=== PATIENT | female | born 1950 | race Caucasian/White ===

== ENCOUNTER 2016-08-02 09:39 | Outpatient (CLI) | END 2016-08-02 09:40 | LOC: AMBL 09:39 | PROVIDERS: ATTEND Family Medicine | DX: T42.4X1A Poisoning by benzodiazepines, accidental (unintentional), initial encounter (principal) ==

== ENCOUNTER 2020-01-21 16:17 | Inpatient (IN) ==
[2020-01-21 17:44] LABS: BASOPHILS % (AUTO) 0.3 % (0.0-3.0); EOSINOPHILS # (AUTO) 0.1 K/ul (0.0-0.7); EOSINOPHILS % (AUTO) 1.7 % (0.0-7.0); HEMATOCRIT 34.7 % (37.0-47.0); HEMOGLOBIN 11.5 g/dl (12.0-16.0); IMMATURE GRANULOCYTE % (AUTO) 0.3 % (0.0-5.0); LYMPHOCYTES # (AUTO) 1.5 K/uL (0.60-3.4); LYMPHOCYTES % (AUTO) 18.9 (10.0-50.0); MEAN CORPUSCULAR HEMOGLOBIN 29.2 pg (27.0-31.0); MEAN CORPUSCULAR HGB CONC 33.1 (31.8-35.4); MEAN CORPUSCULAR VOLUME 88.1 fl (81.0-99.0); MONOCYTES # (AUTO) 0.3 K/uL (0.4-2.0); MONOCYTES % (AUTO) 3.8 (0-10); NEUTROPHILS # (AUTO) 5.8 K/ul (2.0-6.9); PLATELET COUNT 161 10^3/uL (140-440); RDW COEFFICIENT OF VARIATION 12.6 % (11.6-14.8); RED BLOOD COUNT 3.94 10^6/ul (4.20-5.40); WHITE BLOOD COUNT 7.66 K/ul (4.6-10.2)
[2020-01-21 17:56] LABS: ALANINE AMINOTRANSFERASE 11.7 U/L (0-35); ALBUMIN 3.92 g/dL (3.5-5.0); ALKALINE PHOSPHATASE 59.1 U/L (53-141); BILIRUBIN,TOTAL 0.97 mg/dL (0.2-1.3); BLOOD UREA NITROGEN 12.7 mg/dL (7-17); CALCIUM 9.2 mg/dL (8.4-10.2); CARBON DIOXIDE 26.7 mmol/L (22-30.0); CHLORIDE 104.2 mmol/L (98-107); CREATINE KINASE 22.5 U/L (30-135); CREATININE 0.7 mg/dL (0.60-1.30); GLUCOSE 123.2 mg/dL (74-106); POTASSIUM 3.92 mmol/L (3.5-5.1); SODIUM 137.7 mmol/L (134.5-145); TOTAL PROTEIN 6.61 g/dL (6.3-8.2)
[2020-01-21 17:57] LABS: LIPASE 124.6 U/L (23-300); MAGNESIUM 1.9 mg/dL (1.6-2.3)
--- NOTE | 2020-01-21 18:05 | CT ---
EXAM: CT Head HISTORY: Severe headache, elevated blood pressure COMPARISON: None TECHNIQUE: CT head performed without contrast FINDINGS: There is no mass effect, midline shift, or intracranial hemmorhage. Cortez white differenti ation is preserved. There is no extra-axial collection. Mild periventricular subcortical white veronica er hypodensities. The ventricles and sulci are unremarkable. The basal cisterns are patent. There is no depressed calvarial fracture. The mastoid air cells are clear. The visualized paranasal sinuses are clear. IMPRESSION: 1. No acute intracranial abnormality. 2. Mild chronic small vessel ischemic changes.
--- NOTE | 2020-01-21 18:08 | ED.PDOC ---
General ED Provider: Dr. JAYESH SANTOS Chief Complaint: Hypertension Stated Complaint: Severe Headache-associated with uncontrolled Hypertension Time Seen by Physician: 16:45 Mode of Arrival: Walk-In Information Source: Patient Exam Limitations: No limitations Primary Care Provider: ZORAIDA WASHBURN Nursing and Triage Documentation Reviewed and Agree: Yes Does patient meet sepsis criteria?: No System Inflammatory Response Syndrome: Not Applicable Sepsis Protocol: For patient's 13 years and over: Temp is 96.8 and below OR 101 and greater Pulse >90 BPM Resp >20/minute Acutely Altered Mental Status Are patient's symptoms suggestive of a new infection, such as: -Pneumonia -Skin, Soft Tissue -Endocarditis -UTI -Bone, Joint Infection -Implantable Device -Acute Abdominal Infection -Wound Infection -Meningitis -Blood Stream Catheter Infection -Unknown Neurological Complaint Exam Headache Complaint/Exam Onset: Gradual Duration: 12 hr Symptoms Are: Still present Timing: Intermittent Episodes Lasting: Hours Worst Headache Ever: No Initial Severity: Moderate Current Severity: Mild Location: Frontal, Temporal and Occipital Character: Reports Pressure Aggravating: Reports Exertion and Position change Alleviating: Reports None Associated Signs and Symptoms: Reports Neck pain and Neck stiffness; Denies Dizziness, Seizure, Nausea, Vomiting, Sinus pressure, Fever, Decreased LOC and Visual changes Related Surgical History: Reports None SAH Risk Factors: Reports None Meningitis Risk Factors: Reports None SDH Risk Factors: Reports None Temporal Arteritis Risk Factors: Reports None Normal Head CT Within Last 12 Months: No Fundoscopic Exam: Present Normal Findings Papilledema Present: No Temporal Artery Tenderness: Present None Sinus Tenderness: Present None TMJ Tenderness: Present None Pain on Passive Flexion-Positive Kernig's: No ROM Limited In: No Limitiations Focal Weakness: Present None Focal Sensory Loss: Present None Gait: Normal Nystagmus Present: No Gag Reflex Present: Yes [id number]: Normal Findings Babinski Sign: Negative Right and Negative Left Heel to Toe Normal: Yes Differential Diagnoses: Tension Headache Review of Systems Review Of Systems Constitutional: Reports No symptoms Eyes: Reports No symptoms Ears, Nose, Mouth, Throat: Reports No symptoms Respiratory: Reports No symptoms Cardiac: Reports No symptoms GI: Reports No symptoms : Reports No symptoms Musculoskeletal: Reports No symptoms, Joint pain, Muscle pain, Muscle stiffness and Neck pain Skin: Reports No symptoms Neurological: Reports No symptoms and Anxiety Endocrine: Reports No symptoms Hematologic/Lymphatic: Reports No symptoms All Other Systems: Reviewed and Negative Physical Exam Physical Exam Appearance: Reports Well-appearing, No pain distress and Well-nourished Ill-appearing: Mild Pain Distress: Mild Eyes: Reports SALLY, EOMI and Conjunctiva clear ENT: Reports Ears normal, Nose normal and Oropharynx normal Neck: Nonsupple (Tight paravertebral mm spasm) Respiratory: Reports Airway patent, Breath sounds clear, Breath sounds equal and Respirations nonlabored Cardiovascular: Reports RRR, Pulses normal, No rub and No murmur GI/: Reports Soft, Nontender, No masses, Bowel sounds normal and No Organomegaly Musculoskeletal: Reports Normal strength, ROM intact, No edema and No calf tenderness Skin: Reports Warm, Dry and Normal color Neurological: Reports Sensation intact, Motor intact, Reflexes intact, Cranial nerves intact, Alert and Oriented Psychiatric: Reports Affect appropriate and Mood appropriate NIH Stroke Scale 1a. Level of Consciousness: 0=Alert and keenly responsive 1b. Level of Consciousness Questions: 0=Answers correctly to two questions 1c. Level of Consciousness Commands: 0=Performs two tasks correctly 2. Best Gaze: 0=Normal 3. Visual: 0=No visual loss 4. Facial Palsy: 0=Normal 5a. Motor Left Arm: 0=No drift,arm holds 90 degrees for 10 sec., leg 30 degrees for 5 sec. 5b. Motor Right Arm: 0=No drift,arm holds 90 degrees for 10 sec., leg 30 degrees for 5 sec. 6a. Motor Left Le=No drift,arm holds 90 degrees for 10 sec., leg 30 degrees for 5 sec. 6b. Motor Right Le=No drift,arm holds 90 degrees for 10 sec., leg 30 degrees for 5 sec. 7. Limb Ataxia: 0=Absent 8. Sensory: 0=Normal 9. Best Language: 0=No aphasia 10. Dysarthria: 0=Normal 11. Extincion and Inattention: 0=Normal Stroke Scale Total: 0 Physician Notification Case Discussed Physician Notified: dr washburn-admit for eval and treatment Time of Notification: 18:45 Critical Care Note Critical Care Note Total Time (mins): 60 Course Course Hematology/Chemistry: 01/21/20 17:40 01/21/20 17:40 Orders, Labs, Meds: Lab Review 01/21/20 01/21/20 01/21/20 17:40 17:40 17:40 WBC 7.66 RBC 3.94 L Hgb 11.5 L Hct 34.7 L MCV 88.1 MCH 29.2 MCHC 33.1 RDW Coeff of Wendy 12.6 Plt Count 161 Immature Gran % (Auto) 0.3 Neut % (Auto) 75.0 Lymph % (Auto) 18.9 [place] % (Auto) 3.8 Eos % (Auto) 1.7 Baso % (Auto) 0.3 Neut # (Auto) 5.8 Lymph # (Auto) 1.5 [place] # (Auto) 0.3 L Eos # (Auto) 0.1 Baso # (Auto) 0.0 Immature Gran # (Auto) 0.0 Sodium 137.7 Potassium 3.92 Chloride 104.2 Carbon Dioxide 26.7 Anion Gap 10.72 BUN 12.7 Creatinine 0.70 Estimated GFR (MDRD) 83.00 BUN/Creatinine Ratio 18.14 Glucose 123.2 H Uric Acid Calcium 9.20 Magnesium 1.90 Total Bilirubin 0.97 AST 29.0 ALT 11.7 Alkaline Phosphatase 59.1 Total Creatine Kinase 22.5 L Total Protein 6.61 Albumin 3.92 Globulin 2.69 Albumin/Globulin Ratio 1.45 Lipase 124.6 01/21/20 17:40 WBC RBC Hgb Hct MCV MCH MCHC RDW Coeff of Wendy Plt Count Immature Gran % (Auto) Neut % (Auto) Lymph % (Auto) [place] % (Auto) Eos % (Auto) Baso % (Auto) Neut # (Auto) Lymph # (Auto) [place] # (Auto) Eos # (Auto) Baso # (Auto) Immature Gran # (Auto) Sodium Potassium Chloride Carbon Dioxide Anion Gap BUN Creatinine Estimated GFR (MDRD) BUN/Creatinine Ratio Glucose Uric Acid 4.80 Calcium Magnesium Total Bilirubin AST ALT Alkaline Phosphatase Total Creatine Kinase Total Protein Albumin Globulin Albumin/Globulin Ratio Lipase Orders Category Date Time Status EKG-(ED ONLY) Stat CARDIO 01/21/20 17:28 Completed CBC W/ AUTO DIFF Stat LAB 01/21/20 17:40 Completed CMP [COMPREHENSIVE METABOLIC PANEL] Stat LAB 01/21/20 17:40 Completed CPK [CREATINE KINASE] Stat LAB 01/21/20 17:40 Completed ESR Stat LAB 01/21/20 17:40 Received LIPASE Stat LAB 01/21/20 17:40 Completed MAGNESIUM Stat LAB 01/21/20 17:40 Completed UA [URINALYSIS C & S IF INDICATED] Stat LAB 01/21/20 19:33 Ordered URIC ACID Stat LAB 01/21/20 17:40 Completed Hydralazine HCl [Apresoline] MEDS 01/21/20 18:56 Discontinued 25 mg PO ONCE STA Ketorolac Tromethamine [Toradol] MEDS 01/21/20 18:57 Discontinued 30 mg IM ONCE STA Orphenadrine Citrate [Norflex] MEDS 01/21/20 18:56 Discontinued 100 mg PO ONCE STA CHEST, 1V AP ONLY Stat RADS 01/21/20 17:[address] HEAD W/O CONTRAST Stat RADS 01/21/20 17:33 Completed Medications Discontinued Medications Generic Name Dose Route Start Last Admin Trade Name Freq PRN Reason Stop Dose Admin Hydralazine HCl 25 mg 01/21/20 18:56 01/21/20 19:21 Apresoline PO 01/21/20 18:57 25 mg ONCE STA Administration Ketorolac Tromethamine 30 mg 01/21/20 18:57 01/21/20 19:21 Toradol IM 01/21/20 18:58 30 mg ONCE STA Administration Orphenadrine Citrate 100 mg 01/21/20 18:56 01/21/20 19:21 Norflex PO 01/21/20 18:57 100 mg ONCE STA Administration Vital Signs: Temp Pulse Resp BP Pulse Ox 01/21/20 16:18 98.9 F 80 20 186/86 H 94 L Discharge Plan Discharge Prescriptions: No Action metformin 500 mg Tablet 500 mg PO BID RF: 0 atorvastatin 10 mg Tablet 10 mg PO BEDTIME RF: 0 aspirin [Aspir-81] 81 mg Tablet,Delayed Release (Dr/Ec) 81 mg PO DAILY RF: 0 verapamil 120 mg Tablet 120 mg PO BID RF: 0 Activity Restrictions/Additional Instructions: Explained to Dr Washburn patients symptoms and recommended hospitalization Explained to patient who agrees with admission. ED Provider: JAYESH SANTOS
--- NOTE | 2020-01-21 18:36 | DI ---
EXAM: Chest one view HISTORY: Hypertension with severe headaches and weakness COMPARISON: 07/17/2019 TECHNIQUE: Single view of the chest was performed FINDINGS: Normal heart size. Normal mediastinal contour. The lungs are clear. No pleural effusion or pneumothorax. No acute osseous abnormality. Round/ovoid calcific density in the left upper quadra nt may be similar to prior exam. IMPRESSION: 1. No acute cardiopulmonary process. 2. Nonspecific round/ovoid calcific density in the left upper quadrant, which may represent calcifie d splenic cyst among other etiologies. Routine outpatient CT could further evaluate.
[2020-01-21] MEDS ORDERED: APRESOLINE PO STA (18:56)
[2020-01-21] MEDS ORDERED: NORFLEX PO STA (18:56)
[2020-01-21] MEDS ORDERED: TORADOL IM STA (18:57)
[2020-01-21 19:42] LABS: ERYTHROCYTE SEDIMENTATION RATE 10 mm/hr (0-20)
[2020-01-21 19:44] LABS: BILIRUBIN,URINE Negative (NEGATIVE); CLARITY,URINE Clear (CLEAR); COLOR,URINE Yellow (YELLOW); GLUCOSE, URINE (UA) Negative (NEGATIVE); KETONES,URINE 2+ (NEGATIVE); LEUKOCYTE ESTERASE ,URINE Negative (NEGATIVE); NITRITE,URINE Negative (NEGATIVE); PROTEIN,URINE Negative (NEGATIVE); URINE, BLOOD Negative (NEGATIVE); UROBILINOGEN,URINE 0.2 (0.2)
[2020-01-21 21:10] VITALS: BMI 23.8
[2020-01-22 05:29] LABS: BASOPHILS # (AUTO) 0.1 K/uL (0-0.2); BASOPHILS % (AUTO) 0.7 % (0.0-3.0); EOSINOPHILS # (AUTO) 0.2 K/ul (0.0-0.7); EOSINOPHILS % (AUTO) 3.1 % (0.0-7.0); HEMATOCRIT 35.6 % (37.0-47.0); HEMOGLOBIN 11.7 g/dl (12.0-16.0); IMMATURE GRANULOCYTE % (AUTO) 0.3 % (0.0-5.0); LYMPHOCYTES # (AUTO) 2.2 K/uL (0.60-3.4); LYMPHOCYTES % (AUTO) 28.6 (10.0-50.0); MEAN CORPUSCULAR HEMOGLOBIN 28.7 pg (27.0-31.0); MEAN CORPUSCULAR HGB CONC 32.9 (31.8-35.4); MEAN CORPUSCULAR VOLUME 87.3 fl (81.0-99.0); MONOCYTES # (AUTO) 0.4 K/uL (0.4-2.0); MONOCYTES % (AUTO) 5.4 (0-10); NEUTROPHILS # (AUTO) 4.7 K/ul (2.0-6.9); NEUTROPHILS % (AUTO) 61.9 % (42.2-75.2); PLATELET COUNT 202 10^3/uL (140-440); RDW COEFFICIENT OF VARIATION 12.7 % (11.6-14.8); RED BLOOD COUNT 4.08 10^6/ul (4.20-5.40); WHITE BLOOD COUNT 7.65 K/ul (4.6-10.2)
[2020-01-22 05:42] LABS: ALANINE AMINOTRANSFERASE 11.5 U/L (0-35); ALBUMIN 3.86 g/dL (3.5-5.0); ALKALINE PHOSPHATASE 58.7 U/L (53-141); ASPARTATE AMINO TRANSFERASE 21.3 U/L (14-36); BILIRUBIN,TOTAL 1.11 mg/dL (0.2-1.3); BLOOD UREA NITROGEN 15.1 mg/dL (7-17); CALCIUM 9.45 mg/dL (8.4-10.2); CHLORIDE 103.8 mmol/L (98-107); CREATININE 0.76 mg/dL (0.60-1.30); GLUCOSE 104.5 mg/dL (74-106); POTASSIUM 3.77 mmol/L (3.5-5.1); SODIUM 139.5 mmol/L (134.5-145); TOTAL PROTEIN 6.48 g/dL (6.3-8.2)
--- NOTE | 2020-01-22 08:26 | PCM.PROG ---
Attending Provider: ATTENDING PROVIDER: Dr. ZORAIDA SOTELO This patient is seen with Saritha Tellez, Nurse Practitioner. DATE OF SERVICE: 01/22/20 SUBJECTIVE: This 69 year old /WHITE F was hospitalized 01/21/20. The patient is resting comfortably in the bed. She has had no further episodes of headache or vomiting. Her blood pressure his morning has been improved. CT of the head results were reviewed. REVIEW OF SYSTEMS: CONSTITUTIONAL: No night sweats. No fatigue, malaise, lethargy. No fever or chills. HEENT: Eyes: No visual changes. No eye pain. No eye discharge. ENT: No runny nose. No epistaxis. No sinus pain. No odynophagia. No congestion. RESPIRATORY: No cough, no congestion. No hemoptysis. No shortness of breath. CARDIOVASCULAR: No angina symptoms. No CHF symptoms. No atypical chest pain for CAD. No palpitations. No orthopnea.. GASTROINTESTINAL: No abdominal pain. vomiting, resolved. No diarrhea or constipation. No hematemesis. No hematochezia. GENITOURINARY: No urgency. No frequency. No dysuria. No hematuria. No obstructive symptoms. No discharge. No pain. No significant abnormal bleeding. MUSCULOSKELETAL: No musculoskeletal pain; no joint swelling. NEUROLOGICAL: Awake, alert, oriented to time, place and person. Headache, improved. No neck pain. No syncope. No seizures. No dizziness. PSYCHIATRIC: Not anxious. No depression. No suicidal thoughts. No homicidal thoughts. SKIN: No rash. No lesions. No wounds. ENDOCRINE: No unexplained weight loss. No weight gain. HEMATOLOGIC/LYMPHATIC: No anemia. No purpura. No petechiae. No prolonged or excessive bleeding. No palpable lymph nodes. PHYSICAL EXAMINATION: GENERAL: The patient is awake, alert and oriented, lying in bed in no distress. VITAL SIGNS: Temperature 98.2 F, Pulse 60, Respiratory Rate 14, BP 149/75, Pulse Ox 97% HEENT: Head normocephalic, atraumatic. Eyes: Extraocular muscles are intact. Pupils are equal, round and reactive to light and accommodation. Ears: No lesions. Nose appeared normal. Throat: No exudate or erythema. NECK: Supple. No JVD, no carotid bruit. No lymphadenopathy or thyromegaly. LUNGS: Diminished breath sounds. Clear to auscultation. Percussion note normal. Chest symmetrical. HEART: S1, S2, no S3. No murmurs. No cyanosis or clubbing. No ascites. Pulses: Dorsalis pedis and posterior tibial pulses +1 to +2 both sides. ABDOMEN: Soft. Non-tender. Bowel sounds active. No CVA tenderness. No mass felt. EXTREMITIES: No edema. Full range of motion of all extremities, equal. NEUROLOGIC: No focal deficit. Cranial nerves II through XII are grossly intact. No headache, no double vision or headache. SKIN: Not dry. Intact. Turgor-normal. LYMPHATIC: No palpable lymph nodes/no lymphedema. MUSCULOSKELETAL: Normal joints with no swelling. Muscle tone is normal. LAB REVIEW: 01/22/20 04:50 01/22/20 04:50 01/22/20 04:50: Sodium 139.5, Potassium 3.77, Chloride 103.8, Carbon Dioxide 29.0, Anion Gap 10.47, BUN 15.1, Creatinine 0.76, Estimated GFR (MDRD) 75.00, BUN/Creatinine Ratio 19.86, Glucose 104.5, Calcium 9.45, Total Bilirubin 1.11, AST 21.3, ALT 11.5, Alkaline Phosphatase 58.7, Total Protein 6.48, Albumin 3.86, Globulin 2.62, Albumin/Globulin Ratio 1.47 01/22/20 04:50: WBC 7.65, RBC 4.08 L, Hgb 11.7 L, Hct 35.6 L, MCV 87.3, MCH 28.7, MCHC 32.9, RDW Coeff of Wendy 12.7, Plt Count 202, Immature Gran % (Auto) 0.3, Neut % (Auto) 61.9, Lymph % (Auto) 28.6, [place] % (Auto) 5.4, Eos % (Auto) 3.1, Baso % (Auto) 0.7, Neut # (Auto) 4.7, Lymph # (Auto) 2.2, [place] # (Auto) 0.4, Eos # (Auto) 0.2, Baso # (Auto) 0.1, Immature Gran # (Auto) 0.0 01/21/20 19:35: Urine Color Yellow, Urine Clarity Clear, Urine pH 7.0, Ur Specific [place] 1.020, Urine Protein Negative, Urine Glucose (UA) Negative, Urine Ketones 2+ H, Urine Blood Negative, Urine Nitrite Negative, Urine Bilirubin Negative, Urine Urobilinogen 0.2, Ur Leukocyte Esterase Negative 01/21/20 17:40: ESR 10 01/21/20 17:40: Uric Acid 4.80 01/21/20 17:40: Magnesium 1.90, Lipase 124.6 01/21/20 17:40: Sodium 137.7, Potassium 3.92, Chloride 104.2, Carbon Dioxide 26.7, Anion Gap 10.72, BUN 12.7, Creatinine 0.70, Estimated GFR (MDRD) 83.00, BUN/Creatinine Ratio 18.14, Glucose 123.2 H, Calcium 9.20, Total Bilirubin 0.97, AST 29.0, ALT 11.7, Alkaline Phosphatase 59.1, Total Creatine Kinase 22.5 L, Total Protein 6.61, Albumin 3.92, Globulin 2.69, Albumin/Globulin Ratio 1.45 01/21/20 17:40: WBC 7.66, RBC 3.94 L, Hgb 11.5 L, Hct 34.7 L, MCV 88.1, MCH 29.2, MCHC 33.1, RDW Coeff of Wendy 12.6, Plt Count 161, Immature Gran % (Auto) 0.3, Neut % (Auto) 75.0, Lymph % (Auto) 18.9, [place] % (Auto) 3.8, Eos % (Auto) 1.7, Baso % (Auto) 0.3, Neut # (Auto) 5.8, Lymph # (Auto) 1.5, [place] # (Auto) 0.3 L, Eos # (Auto) 0.1, Baso # (Auto) 0.0, Immature Gran # (Auto) 0.0 ASSESSMENT: Please see below. 1. Hypertension 2. Occipital headache 3. Dyslipidemia 4. Diabetes Mellitus type 2 PLAN: 1. Will recommend [facility]. The patient may benefit from social interaction 2. Will continue to monitor blood pressure 3. Will discuss further testing with Dr. Sotelo 4. Carotid scan. Plan and coordination of the patient's care discussed in the presence of Front Office Secretary and nurse. SCRIBED BY: Kerry LOVE scribed while in presence of service performed by Dr. Sotelo/Saritha Tellez APRN on 01/22/20 (32)
[2020-01-22] MEDS: GLUCOPHAGE PO SCH ×2 (08:46→17:46)
[2020-01-22] MEDS: ASPIRIN EC PO SCH (08:46)
[2020-01-22] MEDS: CALAN PO SCH ×2 (08:46→21:11)
[2020-01-22] MEDS: APRESOLINE PO SCH ×2 (09:08→21:11)
--- NOTE | 2020-01-22 12:12 | US ---
EXAM: Ultrasound bilateral carotid duplex. HISTORY: Sudden onset headache. COMPARISON: None available. TECHNIQUE: A duplex Doppler study was performed consisting of integrated two dimensional (2D) real-t cosme imaging color flow Doppler and Doppler spectral analysis utilizing linear array probes. FINDINGS: Please note that estimates of internal carotid artery stenoses are based upon NASCET crite brown. Right carotid: Mild plaquing without 50% or greater stenosis. Peak systolic velocity measurement in the right internal carotid artery is 0.65 meters per second. Right internal to common carotid arter y peak systolic velocity ratio measures 1.2. End diastolic velocity measurement in the right interna l carotid artery is 0.12 meters per second. Flow in the right vertebral artery is antegrade. Left carotid: Mild plaquing without 50% or greater stenosis. Peak systolic velocity measurement in the left internal carotid artery is 0.72 meters per second. Left internal to common carotid artery p eak systolic velocity ratio measures 1.2. End diastolic velocity measurement in the left internal ca rotid artery measures 0.16 meters per second. Flow in the left vertebral artery is antegrade. IMPRESSION: 1. No evidence for 50% or greater stenosis in the right or left internal carotid artery. 2. Antegrade flow in both vertebral arteries.
[2020-01-22] MEDS: LIPITOR PO SCH (21:11)
[2020-01-23 06:15] LABS: BASOPHILS % (AUTO) 0.6 % (0.0-3.0); EOSINOPHILS # (AUTO) 0.3 K/ul (0.0-0.7); EOSINOPHILS % (AUTO) 3.7 % (0.0-7.0); HEMATOCRIT 33.8 % (37.0-47.0); HEMOGLOBIN 11.1 g/dl (12.0-16.0); IMMATURE GRANULOCYTE % (AUTO) 0.1 % (0.0-5.0); LYMPHOCYTES # (AUTO) 2.2 K/uL (0.60-3.4); LYMPHOCYTES % (AUTO) 31.9 (10.0-50.0); MEAN CORPUSCULAR HEMOGLOBIN 28.5 pg (27.0-31.0); MEAN CORPUSCULAR HGB CONC 32.8 (31.8-35.4); MEAN CORPUSCULAR VOLUME 86.9 fl (81.0-99.0); MONOCYTES # (AUTO) 0.5 K/uL (0.4-2.0); MONOCYTES % (AUTO) 6.7 (0-10); NEUTROPHILS # (AUTO) 3.9 K/ul (2.0-6.9); PLATELET COUNT 180 10^3/uL (140-440); RDW COEFFICIENT OF VARIATION 12.8 % (11.6-14.8); RED BLOOD COUNT 3.89 10^6/ul (4.20-5.40); WHITE BLOOD COUNT 6.83 K/ul (4.6-10.2)
[2020-01-23 06:25] LABS: ALBUMIN 3.67 g/dL (3.5-5.0); ALKALINE PHOSPHATASE 51.1 U/L (53-141); ASPARTATE AMINO TRANSFERASE 21.2 U/L (14-36); BILIRUBIN,TOTAL 1.21 mg/dL (0.2-1.3); BLOOD UREA NITROGEN 14.1 mg/dL (7-17); CALCIUM 9.19 mg/dL (8.4-10.2); CARBON DIOXIDE 28.9 mmol/L (22-30.0); CHLORIDE 104.8 mmol/L (98-107); CREATININE 0.8 mg/dL (0.60-1.30); GLUCOSE 119.9 mg/dL (74-106); POTASSIUM 3.9 mmol/L (3.5-5.1); SODIUM 138.1 mmol/L (134.5-145); TOTAL PROTEIN 6.19 g/dL (6.3-8.2)
[2020-01-23] MEDS: CALAN PO SCH ×2 (09:19→20:04)
[2020-01-23] MEDS: APRESOLINE PO SCH ×2 (09:20→20:03)
[2020-01-23] MEDS: ASPIRIN EC PO SCH (09:20)
[2020-01-23] MEDS: GLUCOPHAGE PO SCH ×2 (09:20→17:46)
[2020-01-23] MEDS ORDERED: TORADOL IVP ONE (11:45)
[2020-01-23] MEDS: LIPITOR PO SCH (20:03)
[2020-01-23] MEDS ORDERED: ZOFRAN 4 MG/2 ML IVP STA (21:56)
[2020-01-24 05:49] VITALS: BP 135/75; TEMP 97.8
[2020-01-24] MEDS: CALAN PO SCH (08:50)
[2020-01-24] MEDS: APRESOLINE PO SCH (08:51)
[2020-01-24] MEDS: ASPIRIN EC PO SCH (08:51)
[2020-01-24] MEDS: GLUCOPHAGE PO SCH (08:51)
[2020-01-24 12:03] LABS: BASOPHILS % (AUTO) 0.3 % (0.0-3.0); EOSINOPHILS # (AUTO) 0.2 K/ul (0.0-0.7); HEMATOCRIT 36.3 % (37.0-47.0); IMMATURE GRANULOCYTE % (AUTO) 0.3 % (0.0-5.0); LYMPHOCYTES % (AUTO) 28.8 (10.0-50.0); MEAN CORPUSCULAR HEMOGLOBIN 28.9 pg (27.0-31.0); MEAN CORPUSCULAR HGB CONC 33.1 (31.8-35.4); MEAN CORPUSCULAR VOLUME 87.5 fl (81.0-99.0); MONOCYTES # (AUTO) 0.4 K/uL (0.4-2.0); MONOCYTES % (AUTO) 5.6 (0-10); NEUTROPHILS # (AUTO) 4.4 K/ul (2.0-6.9); PLATELET COUNT 178 10^3/uL (140-440); RDW COEFFICIENT OF VARIATION 12.9 % (11.6-14.8); RED BLOOD COUNT 4.15 10^6/ul (4.20-5.40); WHITE BLOOD COUNT 7.02 K/ul (4.6-10.2)
[2020-01-24 12:16] LABS: ALANINE AMINOTRANSFERASE 12.9 U/L (0-35); ALBUMIN 4.2 g/dL (3.5-5.0); ALKALINE PHOSPHATASE 56.7 U/L (53-141); BILIRUBIN,TOTAL 0.99 mg/dL (0.2-1.3); BLOOD UREA NITROGEN 14.8 mg/dL (7-17); CALCIUM 9.93 mg/dL (8.4-10.2); CARBON DIOXIDE 27.7 mmol/L (22-30.0); CHLORIDE 104.3 mmol/L (98-107); CREATININE 0.79 mg/dL (0.60-1.30); GLUCOSE 109.4 mg/dL (74-106); POTASSIUM 3.89 mmol/L (3.5-5.1); SODIUM 139.5 mmol/L (134.5-145); TOTAL PROTEIN 7.09 g/dL (6.3-8.2)
[2020-01-24 12:47] LABS: THYROID STIMULATING HORMONE 1.7 uIU/L (0.465-4.68)
--- NOTE | 2020-01-25 08:12 | HP ---
DATE OF SERVICE: 01/21/20 REASON FOR HOSPITALIZATION/HISTORY OF PRESENT ILLNESS: 69-year-old white female presented to the ER with complaints of occipital headache, dizziness and hypertension. Blood pressure on arrival was 186/86. The patient was treated with Hydralazine, Toradol and Norflex. She was admitted for further evaluation and management. PAST MEDICAL HISTORY: Hypertension Diabetes Type 2 (last A1C 7.0 11/2019) Chronic kidney disease, Stage 2 Vitamin B12 deficiency Anemia Dyslipidemia for which the patient has refused treatment Osteoarthritis of the right shoulder Right sciatica Lumbar radiculopathy Severe degenerative joint disease of the L-spine PAST SURGICAL HISTORY: REVIEW OF SYSTEMS: CONSTITUTIONAL: No night sweats. No fatigue, malaise, lethargy. No fever or chills. HEENT: Weakness. Eyes: No visual changes. No eye pain. No eye discharge. ENT: No runny nose. No epistaxis. No sinus pain. No sore throat. No odynophagia. No ear pain. No congestion. RESPIRATORY: No cough, no congestion. No hemoptysis. No shortness of breath. CARDIOVASCULAR: No angina symptoms. No CHF symptoms. No atypical chest pain for CAD. No palpitations. No PND. No orthopnea. GASTROINTESTINAL: No abdominal pain. No nausea or vomiting. No diarrhea or constipation. No hematemesis. No hematochezia. GENITOURINARY: No urgency. No frequency. No dysuria. No hematuria. No obstructive symptoms. No discharge. No pain. No significant abnormal bleeding. MUSCULOSKELETAL: No musculoskeletal pain. No joint swelling. No arthritis. NEUROLOGICAL: Headache, dizziness. No neck pain. No syncope. No seizures. PSYCHIATRIC: Not anxious. No depression. No suicidal thoughts. No homicidal thoughts. SKIN: No rash. No lesions. No wounds. ENDOCRINE: No unexplained weight loss. No weight gain. HEMATOLOGIC/LYMPHATIC: No anemia. No purpura. No petechiae. No prolonged or excessive bleeding. No palpable lymph nodes. PERSONAL/FAMILY/SOCIAL HISTORY: She lives with her . They are still but somewhat . There is a lot of marital issues. She does not smoke. She does not use any illegal drugs. She does not use any alcohol. MEDICATIONS: Aspirin 81 mg p.o. daily Verapamil 120 mg p.o. b.i.d. Metformin 500 mg p.o. b.i.d. Atorvastatin 10 mg p.o. bedtime ALLERGIES: CARVEDILOL, LISINOPRIL, TELMISARTAN PHYSICAL EXAMINATION: VITAL SIGNS: Temperature 98.9, pulse 80, respirations 20, BP 186/86, pulse ox 94%. HEENT: Head normocephalic, atraumatic. Eyes: Extraocular muscles are intact. Pupils are equal, round and reactive to light and accommodation. Ears: No lesions. Nose appeared normal. Throat: No exudate or erythema. NECK: Supple. No JVD, no carotid bruit. No lymphadenopathy or thyromegaly. LUNGS: Diminished breath sounds. Clear to auscultation. Percussion note normal. Chest symmetrical. HEART: S1, S2, no S3. No murmur. No cyanosis or clubbing. No ascites. Pulses: Dorsalis pedis and posterior tibial pulses +1 to +2 bilaterally. ABDOMEN: Soft. Nontender. Bowel sounds active. No CVA tenderness. No mass felt. EXTREMITIES: No edema. Full range of motion of all extremities, equal. NEUROLOGIC: No focal deficit. Cranial nerves II through XII are grossly intact. No headache, no double vision or headache. SKIN: Not dry. Intact. Turgor - normal. LYMPHATIC: No palpable lymph nodes/no lymphedema. MUSCULOSKELETAL: Normal joints with no swelling. Muscle tone is normal. LABS: White blood count 7.66, hemoglobin 11.5, hematocrit 34.7, platelets 161. Sodium 137.7, potassium 3.92, BUN 12.7, creatinine 0.70. AST 29.0, ALT 11.7. Chest x- ray showed no acute cardiopulnmonary process, nonspecific round ovoid calcific density in the left upper quadrant which may represent calcified splenic cyst among other etiologies. Routine outpatient CT could further evaluate. CT of the head showed no acute intracranial abnormality. Mild chronic small vessel ischemic changes. ASSESSMENT: 1. HYPERTENSION 2. HEADACHE 3. DIZZINESS 4. DYSLIPIDEMIA 5. DIABETES MELLITUS TYPE 2 6. CHRONIC KIDNEY DISEASE STAGE 2 PLAN: 1. Admit. 2. Routine telemetry. 3. CBC, CMP daily. 4. Continue home medications. 5. Low sodium diet. The patient was seen and examined with Dr. Anton. Plan was discussed. TIME SPENT: More than 70 minutes. [facility]
--- NOTE | 2020-01-25 14:10 | ECHO2D ---
Date of Exam: 01/22/2020 Ordering Physician: DR. ZORAIDA SOTELO Room #: 114 Reason for Echo: EVALUATE LV FUNCTION, HTN M-Mode Normal Adult Results LV Dimensions Normal Adult Results AoV Opening excursions >1.6 >1.6 LVEDD-base- 3.5-5.8 4.9 Ao root dimensions 2.0-3.7 3.2 LVESD-base- 3.1-4.6 L. Atrium dimensions 1.9-3.8 4.1 Post. Wall thickness 0.8-1.1 1.0 IV septum (thickness) 0.7-1.2 1.1 Post. Wall excursion 0.72-1.3 NORMAL Septal motion NORMAL Systolic motion R. Ventricular cavity 1.5-2.0 NORMAL LVEF 60% 68% Paradoxical septal wall motion NORMAL 2-D : 2-D M Mode Echocardiogram was performed using apical four chamber and left parasternal long and short axis views. Mitral, tricuspid and aortic valves appear to be normal. Contractility of the left ventricle seems to be normal, so is the cavity size. ENLARGED LEFT ATRIAL CAVITY SIZE. Aortic root appears to be normal. There is no pericardial effusion. There is no thrombus noted in the left ventricle or left atrial cavity. No mitral valve prolapse noted. M-MODE: MV: NORMAL AV: NORMAL TV: NORMAL PV: CHAMBER SIZE: ENLARGED LEFT ATRIAL CAVITY WALL MOTION: NORMAL PERICARDIUM: NORMAL INTERPRETATION: 1. ENLARGED LEFT ATRIAL CAVITY 2. NORMAL LEFT VENTRICULAR CONTRACTILITY--NORMAL LEFT VENTRICLE SIZE 3. NORMAL VALVES MTDD
--- NOTE | 2020-01-25 14:35 | DS ---
DATE OF SERVICE: 01/24/20 FINAL DIAGNOSIS: 1. HYPERTENSION 2. 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 TENSION HEADACHE 4. DYSLIPIDEMIA 5. DIABETES MELLITUS 6. GENERALIZED OSTEOARTHRITIS 7. CHRONIC ANEMIA DISCHARGE INSTRUCTIONS: Instructed to come back on 01/28/20 as scheduled. MEDICATIONS AT DISCHARGE: Aspirin Atorvastatin Metformin Verapamil NEW PRESCRIPTIONS: Hydralazine 50 mg p.o. b.i.d. DIET INSTRUCTIONS: Resume diet as prior. ACTIVITY: Resume activity as prior. SMOKING: N/A DISEASE SPECIFIC EDUCATION: Advised stress echo as outpatient Advised EGD and colonoscopy, the patient declined but said she would think about it Coronary artery disease Medication and followups HOSPITAL COURSE: 69-year-old white female hospitalized with severe hypertension and headache. CT scan of the head was negative. Carotid scan was also negative. The patient was treated with Toradol in the Emergency Room but was given Hydralazine along with Verapamil. The patient's blood pressure at the time of discharge was 135/75. She was up and about feeling good, had a good breakfast. Prior to discharge date on 01/23/20, she had an episode of vomiting with nausea. Attributed that to taking all the pills together in the evening. The patient doesn't have any reflux type of disease. In fact, she has gained 3 to 4 lbs in the past several weeks. The patient is under a lot of tension with family and marital problems for a few years. The patient did not have any chest pain or no PND, no orthopnea. The patient is strongly advised to have stress echo done as an outpatient but she declined. The patient also declined upper GI with CT scan of the abdomen and pelvis. She will think about having EGD or colonoscopy done as an outpatient but at the present time she declined. The patient has several risk factors of coronary artery disease, is noncompliant of her medications. Also noncompliant of followups. LABS: Hemoglobin 11, hematocrit 33, WBC 6800, normal differential. Creatinine 0.8, BUN 14, potassium 3.9. CONDITION AT TIME OF DISCHARGE: Stable. TIME SPENT: More than 60 minutes. MTDD
--- NOTE | 2020-01-25 14:37 | PN ---
BILLING 01/21/20 ADMISSION DAY LEVEL 5 01/22/20 INTERMEDIATE 01/23/20 INTERMEDIATE 01/24/20 DISCHARGE MTDD
--- NOTE | 2020-01-25 14:54 | PN ---
DATE OF SERVICE: 01/23/20 SUBJECTIVE: 69-year-old white female hospitalized with severe hypertension and headache. All the workup so far including echocardiogram are acceptable. Echo shows normal LV contractility, enlarged LA cavity. Normal valvular structures. The patient's carotid scan shows 50% or less, carotid occlusive disease. CT scan of the head is practically unremarkable except for small vessel disease. Today the patient is feeling a lot better. REVIEW OF SYSTEMS: CONSTITUTIONAL: No night sweats. No fatigue, malaise, lethargy. No fever or chills. HEENT: Eyes: No visual changes. No eye pain. No eye discharge. ENT: No runny nose. No epistaxis. No sinus pain. No sore throat. No odynophagia. No congestion. RESPIRATORY: No cough, no congestion. No hemoptysis. No shortness of breath. CARDIOVASCULAR: No angina symptoms. No CHF symptoms. No atypical chest pain for CAD. No palpitations. No PND. No orthopnea. GASTROINTESTINAL: No abdominal pain. No nausea or vomiting. No diarrhea or constipation. No hematemesis. No hematochezia. GENITOURINARY: No urgency. No frequency. No dysuria. No hematuria. No obstructive symptoms. No discharge. No pain. No significant abnormal bleeding. MUSCULOSKELETAL: No musculoskeletal pain; no joint swelling. NEUROLOGICAL: No headache. No neck pain. No syncope. No seizures. No dizziness. PSYCHIATRIC: Not anxious. No depression. No suicidal thoughts. No homicidal thoughts. SKIN: No rash. No lesions. No wounds. ENDOCRINE: No unexplained weight loss. No weight gain. HEMATOLOGIC/LYMPHATIC: No anemia. No purpura. No petechiae. No prolonged or excessive bleeding. No palpable lymph nodes. PHYSICAL EXAMINATION: GENERAL: The patient is up and about with no headache, no visual problems. Appetite has improved according to her. VITAL SIGNS: Temperature 98.2, pulse 63, respiratory rate 18, blood pressure 134/77, pulse ox 95%. HEENT: Head normocephalic, atraumatic. Eyes: Extraocular muscles are intact. Pupils are equal, round and reactive to light and accommodation. Ears: No lesions. Nose appeared normal. Throat: No exudate or erythema. NECK: Supple. No JVD, no carotid bruit. No lymphadenopathy or thyromegaly. LUNGS: Decreased breath sounds but clear to auscultation. Percussion note normal. Chest symmetrical. HEART: S1, S2, no S3. No murmurs. No cyanosis or clubbing. No ascites. Pulses: Dorsalis pedis and posterior tibial pulses +1 to +2 bilaterally. ABDOMEN: Soft. Nontender. Bowel sounds active. No CVA tenderness. No mass felt. EXTREMITIES: No edema. Full range of motion of all extremities, equal. NEUROLOGIC: No focal deficit. Cranial nerves II through XII are grossly intact. No headache, no double vision or headache. SKIN: Not dry. Intact. Turgor - normal. LYMPHATIC: No palpable lymph nodes/no lymphedema. MUSCULOSKELETAL: Normal joints with no swelling. Muscle tone is normal. LABS: Hemoglobin 11.1, hematocrit 33, WBC 6,800, normal differential, creatinine 0.6, BUN 14, potassium 3.9. ASSESSMENT: 1. Hypertension seems to be under control with additional of Hydralazine 50 mg b.i.d. along with Verapamil. 2. The patient has tension headaches based on very likely spasm of the cervical with cervical radiculopathy, also has a lot of anxiety and tension. The patient has no suicidal or homicidal tendancies or ideations. She is able to deal with the family problems very well for the past several years. Gave Toradol 30 mg IV. 3. The patient's anemia is chronic, could be conditional. Colonoscopy recommended which she has declined. Colocare declined. TIME SPENT: More than 30 minutes. Plan and coordination of the patient's care discussed in the presence of nurse. YOU
--- NOTE | 2020-01-26 10:37 | PN ---
DATE OF SERVICE: 01/24/2020 DISCHARGE NOTE SUBJECTIVE: 69 year old white female hospitalized with severe hypertension and tension headache. Headache has subsided. She is up and about. No neurological deficit. CT scan of the head is unremarkable. The patient's echocardiogram showed normal LV contractility. She has several risk factors for coronary artery disease. Declined to have stress test done. She has nausea with one vomitus on 01/23/2020 in the evening. No abdominal or chest pain. Contributed that to taking all the medication together. REVIEW OF SYSTEMS: CONSTITUTIONAL: No night sweats. No fatigue, malaise, lethargy. No fever or chills. HEENT: Eyes: No visual changes. No eye pain. No eye discharge. ENT: No runny nose. No epistaxis. No sinus pain. No sore throat. No odynophagia. No congestion. RESPIRATORY: No cough, no congestion. No hemoptysis. No shortness of breath. CARDIOVASCULAR: No angina symptoms. No CHF symptoms. No atypical chest pain for CAD. No palpitations. No PND. No orthopnea. GASTROINTESTINAL: No abdominal pain. No nausea or vomiting. No diarrhea or constipation. No hematemesis. No hematochezia. GENITOURINARY: No urgency. No frequency. No dysuria. No hematuria. No obstructive symptoms. No discharge. No pain. No significant abnormal bleeding. MUSCULOSKELETAL: No musculoskeletal pain; no joint swelling. NEUROLOGICAL: No headache. No neck pain. No syncope. No seizures. No dizziness. PSYCHIATRIC: Not anxious. No depression. No suicidal thoughts. No homicidal thoughts. SKIN: No rash. No lesions. No wounds. ENDOCRINE: No unexplained weight loss. No weight gain. HEMATOLOGIC/LYMPHATIC: No anemia. No purpura. No petechiae. No prolonged or excessive bleeding. No palpable lymph nodes. PHYSICAL EXAMINATION: VITAL SIGNS: Temperature 97.9, pulse 68, respiratory rate 16, blood pressure 135/75 and pulse ox 97%. HEENT: Head normocephalic, atraumatic. Eyes: Extraocular muscles are intact. Pupils are equal, round and reactive to light and accommodation. Ears: No lesions. Nose appeared normal. Throat: No exudate or erythema. NECK: Supple. No JVD, no carotid bruit. No lymphadenopathy or thyromegaly. LUNGS: Clear to auscultation. Percussion note normal. Chest symmetrical. HEART: S1, S2, no S3. No murmurs. No cyanosis or clubbing. No ascites. Pulses: Dorsalis pedis and posterior tibial pulses +1 to +2 bilaterally. ABDOMEN: Soft. Nontender. Bowel sounds active. No CVA tenderness. No mass felt. EXTREMITIES: No edema. Full range of motion of all extremities, equal. NEUROLOGIC: No focal deficit. Cranial nerves II through XII are grossly intact. No headache, no double vision or headache. SKIN: Not dry. Intact. Turgor - normal. LYMPHATIC: No palpable lymph nodes/no lymphedema. MUSCULOSKELETAL: Normal joints with no swelling. Muscle tone is normal. ASSESSMENT: 1. Hypertension, under control 2. Headache practically resolved 3. Tension headache along with cervical osteoarthritis. The patient had good breakfast. No nausea and vomiting. No chest pain. She is up and about. Vitals are stable. The patient has chronic anemia. The patient is advised colonoscopy and EGD which she has declined. CT scan of the abdominal and pelvis as an outpatient with upper GI also declined. CONDITION AT THE TIME OF DISCHARGE: Stable. PLAN: 1. The patient is going to be followup as an outpatient. 2. DASH and low salt diet discussed with the patient. TIME SPENT: More than 30 minutes. Plan and coordination of the patient's care discussed in the presence of nurse. YOU
== END 2020-01-24 13:08 | disposition home or self-care (01) | DRG 305 ==
LOC: ED 16:17 → MEDSURG B 19:49
PROVIDERS: ADMIT Internal Medicine; ATTEND Internal Medicine
DX: Z79.899 Other long term (current) drug therapy; G44.209 Tension-type headache, unspecified, not intractable; M62.838 Other muscle spasm; N18.2 Chronic kidney disease, stage 2 (mild); I10 Essential (primary) hypertension; M47.812 Spondylosis without myelopathy or radiculopathy, cervical region; R42 Dizziness and giddiness; E53.8 Deficiency of other specified B group vitamins; M15.0 Primary generalized (osteo)arthritis; D64.9 Anemia, unspecified; E11.9 Type 2 diabetes mellitus without complications; Z51.81 Encounter for therapeutic drug level monitoring; E78.5 Hyperlipidemia, unspecified; Z91.19 Patient's noncompliance with other medical treatment and regimen